=== PATIENT | female | born 1995 | race African-American/Black ===

== ENCOUNTER 2018-11-02 23:37 | Emergency (ER) | payer SELFPAY ==
[~2018-11-02] VITALS: Ht 165.1 cm; Wt 59.0 kg
--- NOTE | 2018-11-03 | NUR ---
ED Nurse Note: Recieved pt on [facility] from home with c/o etoh intoxication, pt is lethargic and arouses to painful stimuli only, pt is with spouse, no s/s of injury, o2 sat=99%, pt assisted to [email or web address], will resume care as ordered and continue to closely monitor.
--- NOTE | 2018-11-03 02:12 | Emergency Room Report ---
History of Present Illness General Chief Complaint: Alcohol Intoxication Source: Significant Other Present Illness HPI Patient is a 23-year-old female brought in by EMS after increased altered mental status. Patient recent alcohol intake. Patient had been noted to have some prior injury to the knee and was noted to have some difficulty with ambulation at baseline since recent injury. History is limited by patient's intoxication. Allergies: Coded Allergies: No Known Allergies (Unverified , 11/02/18) Patient History Past Medical History: see triage record Reviewed Nursing Documentation: PMH: Agreed; PSxH: Agreed Nursing Documentation-PMH Past Medical History: No Stated History Review of Systems All Other Systems: limited - poor historian Physical Exam Vital Signs Date Time Temp Pulse Resp B/P (MAP) Pulse Ox O2 Delivery O2 Flow Rate FiO2 11/02/18 23:44 98.2 66 18 120/70 (87) 98 Room Air General Appearance: well appearing, no apparent distress, alert, GCS 15 Head: normocephalic, atraumatic ENT: hearing grossly normal, normal voice Neck: full range of motion, supple Respiratory: no respiratory distress, speaking full sentences Cardiovascular #1: normal inspection Gastrointestinal: normal inspection, soft Musculoskeletal: normal inspection Neurologic: normal inspection, alert, responsive, other - Slurred speech Psychiatric: mood/affect normal Skin: no rash Medical Decision Making Diagnostic Impression: Primary Impression: Acute alcoholic intoxication ER Course Patient presented for altered mental status. Differential diagnosis included but was not limited to ischemic stroke, subarachnoid hemorrhage, hypoglycemia, electrolyte abnormality, uremia, postictal state, neurodegenerative disorder, urinary tract infection, hypoxemia, overdose, alcohol intoxication. Patient has a benign exam and does not appear to require any imaging or laboratory testing at this time. History he had been drinking alcohol heavily prior to arrival at the hospital. Patient observed in the emergency department. she had gradual improvement in mental status. At the time of discharge patient is awake alert oriented and able to ambulate without assistance. Patient was discharged with her significant other. Patient was advised not to drink excessive amounts of alcohol. Last Vital Signs Date Time Temp Pulse Resp B/P (MAP) Pulse Ox O2 Delivery O2 Flow Rate FiO2 11/02/18 23:44 98.2 66 18 120/70 (87) 98 Room Air Status: improved Disposition: HOME, SELF-CARE Condition: Stable Referrals: NOT CHOSEN IPA/,REFERRING (PCP) Louie Suarez MD Nov 03, 2018 02:12
--- NOTE | 2018-11-03 03:45 | NUR ---
ED Nurse Note: Pt continues to rest inb ed, awakens more easily and to verbal stimuli, v/s stable, spose at bedside, pt denies pain, no sob or labored breathing, given water, tolerated well, will continue to monitor and allow to sleep until am and sober to d/c.
[2018-11-03 05:45] VITALS: BP 116/64
[2018-11-03 06:25] VITALS: BP 116/64
--- NOTE | 2018-11-03 06:25 | NUR ---
ER DISCHARGE NOTE: Patient is cleared to be discharged per ERMD, pt is aox4, on room air, with stable vital signs. pt was given dc and prescription instructions, pt was able to verbalize understanding, pt id band removed without complications. pt is able to ambulate with steady gait. pt took all belongings.
== END 2018-11-03 06:25 | disposition home or self-care (01) ==
LOC: EDBD 23:37 → EMR 23:51
DX: F10.129 Alcohol abuse with intoxication, unspecified (principal)
CPT/HCPCS: 99281